=== PATIENT | female | born 1990 | race Caucasian/White ===

== ENCOUNTER 2022-12-15 07:21 | Emergency (ER) | payer BC, SELFPAY ==
[2022-12-15] VITALS (10 sets, daily range): BP systolic 102–123; BP diastolic 55–80; PULSE 67–107; RESP 15–18; TEMP 36.6–37; O2SAT 96–100; BMI 40.5
--- NOTE | 2022-12-15 07:32 | US_ITS ---
FINAL REPORT CLINICAL HISTORY: ovarian torsion, RLQ pain FINDINGS: Transvaginal sonographic images of the pelvis were obtained. The uterus measures 10.8 x 5.8 x 4.9 cm and is enlarged. There is a fibroid measuring 4.2 cm.. The endometrium is thickened and heterogeneous measuring up to 16 mm. Clot in the endometrial canal cannot be excluded. The right ovary measures 4.7 cm in length and left ovary measures 3.0 cm in length. Normal blood flow seen to the ovaries. There are small bilateral ovarian cysts measuring 3 cm on the right and 2.1 cm on the left. There is no evidence of free fluid. IMPRESSION: Heterogeneous and thickened endometrium. Clot in the endometrial cavity not excluded. No evidence of torsion. Reviewed, Interpreted and Dictated by Ricco Long III, MD Transcribed by Tresa Escobedo Authenticated and [facility]
[2022-12-15 07:35] LABS: Microscopic, Urine URINE MICROSCOPIC (MICROSCOPIC)
[2022-12-15 07:37] LABS: Appearance,Urine CLEAR (Clear); Blood, Urine 3+ (Negative); Color,Urine YELLOW (Yellow); Glucose,Urine (UA) Negative (Negative); Ketones,Urine Negative (Negative); Leukocyte Esterase,Urine TRACE (Negative); Nitrate,Urine Negative (Negative); Protein,Urine TRACE (Negative); Specific Gravity, Urine >= 1.030 (1.005-1.030)
--- NOTE | 2022-12-15 07:37 | HMH.EDGENADL ---
Discharge Plan Disposition Patient Disposition: Still a Patient Referrals Follow up/Referrals: Provider,Referral, [Primary Care Provider] - See instructions Clinical Impressions Clinical Impression: Acute right lower quadrant pain Discharge ED Provider: Preet Coombs General Adult HPI General Stated complaint: RT abd pain Time Seen by Provider: 12/15/22 07:38 History of Present Illness HPI narrative: 32-year-old female presents with right lower quadrant abdominal pain. She says that it began suddenly in the right lower quadrant yesterday and has been sharp nonradiating. No dysuria or hematuria. No fever or chills. She is on her period currently. No right upper quadrant pain chest pain or shortness of breath. Related Data Allergies Allergy/AdvReac Type Severity Reaction Status Date / Time amoxicillin [From Amoxil] Allergy Unknown Verified 01/28/19 11:33 cefaclor [From Ceclor] Allergy Unknown Verified 01/28/19 11:33 erythromycin base Allergy Unknown Verified 01/28/19 11:33 [From Pediazole] sulfisoxazole Allergy Unknown Verified 01/28/19 11:33 [From Pediazole] [facility] Disclaimer: The information contained in this section may have been updated after the patient was seen, as this information can be updated by other users. Social History Smoking Status: Never smoker alcohol intake: never substance use type: denies use current occupational status: other Travel in the last 8 weeks: None ROS Obtained: Yes All systems reviewed & no additional complaints except as documented Constitutional Constitutional: Denies fatigue Eyes Eyes: Denies dry eyes ENT Ears, Nose, Mouth, and Throat: Denies dizziness, Denies dry mouth and Denies lip swelling Cardiovascular Cardiovascular: Denies diaphoresis and Denies dyspnea Respiratory Respiratory: Denies dyspnea Gastrointestinal Gastrointestingal: Denies hematemesis, loose stools or melena Genitourinary Female Genitourinary: Denies dysuria and Denies hematuria Musculoskeletal Musculoskeletal: Denies muscle cramps Integumentary/Breasts Skin/Breast: Denies redness and Denies rash Neurologic Neurologic: Denies dizziness Endocrine Endocrine: Denies fatigue Hematologic/Lymphatic Henatologic/Lymphatic: Denies easy bleeding Allergic/Immunologic Allergic/Immunologic: Denies lip swelling Physical Exam General General appearance: alert and in no apparent distress Eye Eye exam: Present PERRL and EOMI ENT ENT exam: Present normal exam and normal oropharynx Neck Neck exam: Present normal inspection Chest Chest inspection: Present symmetric chest wall rise Respiratory Respiratory exam: Present normal lung sounds bilaterally; Absent respiratory distress Cardiovascular Cardiovascular exam: Present regular rate and normal rhythm Abdominal Exam Abdominal exam: Present soft and tenderness (Right lower quadrant tenderness); Absent distention, guarding, rebound, Ortega's sign or tenderness at McBurney's Point Back Exam Back exam: Present normal inspection Neurological Exam Neurological exam: Present alert and oriented X3 Psychiatric Psychiatric exam: Present normal affect and normal mood Skin Skin exam: Present warm, dry and intact Lymphatic Lymphatic Findings: no adenopathy Medical Decision Making Medical Records Medical records reviewed: Yes I reviewed the patient's medical records. Eber Inquiry Pt receiving controlled substance: No Eber was queried for this patient: No Orders (Tests/Meds): ED MEDICATIONS Generic Name Dose Route Start Last Admin Trade Name Freq PRN Reason Stop Dose Admin Sodium Chloride 1,000 mls @ 999 mls/hr 12/15/22 07:45 Sod Chlor 0.9% 1000ml Bag IV 12/15/22 08:45 .[id number] [facility] ORDERS Category Date Time Status Complete Blood Count Auto Diff Stat Lab 12/15/22 07:32 Ordered Comprehensive Metabolic Panel Stat Lab 12/15/22 07:32 Ordered HCG Qualitative, Serum Stat Lab 12/15/22 07:32 Ordered UA [Urina
[2022-12-15 07:39] LABS: Bilirubin,Urine 1+ (Negative)
[2022-12-15 07:40] LABS: Bacteria,Urine Trace /lpf; Squamous Epithelial Cell,Urine Occasional #/hpf (0-5)
--- NOTE | 2022-12-15 07:40 | PC.NURSE ---
pt to rad via wheelchair
--- NOTE | 2022-12-15 07:50 | PC.NURSE ---
PT GOING TO HAVE VAGINAL ULTRA SOUND VIA WHEELCHAIR
[2022-12-15 07:53] LABS: Basophils % 0.4 % (0.1-2.0); Eosinophils # 0.3 K/mm3 (0.0-0.4); Eosinophils % 3.1 % (0.1-12.0); Hemoglobin 10.9 g/dL (12.2-16.2); Lymphocytes # 0.6 K/mm3 (0.7-4.5); Lymphocytes % 6.5 % (10-50); Mean Corpuscular HGB Conc 31.1 g/dL (31.8-35.4); Mean Corpuscular Hemoglobin 22.6 pg (27.0-31.2); Mean Corpuscular Volume 72.8 fl (81-99); Mean Platelet Volume 9.3 fl (7.4-10.4); Monocytes # 0.6 K/mm3 (0.1-1.0); Monocytes % 6.4 % (1.7-9.3); Neutrophils # 7.4 K/mm3 (1.8-7.8); Neutrophils % 83.6 % (37.0-80.0); Platelet Count 292 K/mm3 (142-424); Red Cell Distribution Width 17.3 % (11.5-17.5); White Blood Count 8.8 K/mm3 (4.8-10.8)
--- NOTE | 2022-12-15 07:53 | PC.NURSE ---
Pt in Ultrasound.
[2022-12-15 07:56] LABS: Chloride 108 mmol/L (98-107)
[2022-12-15 07:57] LABS: Sodium 138 mmol/L (136-145)
[2022-12-15 07:59] LABS: Alanine Aminotransferase 16 U/L (12-78); Alkaline Phosphatase 61 U/L (38-126); Aspartate Amino Transferase 24 U/L (14-36); Bilirubin,Total 1.1 mg/dl (0.2-1.3); Blood Urea Nitrogen 7 mg/dl (7-17); Creatinine Clearance Estimated 39 mL/min (50-200); Estimated Glomerular Filt Rate 141 ml/min (>60); GFR (African American) 171 ML/MIN (>60)
[2022-12-15 08:00] LABS: Albumin Level 4.4 g/dl (3.5-5.0); Albumin/Globulin Ratio 1.2 (1.1-1.8); Calcium 8.4 mg/dl (8.4-10.2); Carbon Dioxide 23 mmol/L (22.0-30.0); Globulin 3.6 g/dL (1.3-3.2); Glucose 129 mg/dl (74-100)
[2022-12-15 08:01] LABS: HCG Qualitative, Serum Negative (Negative)
--- NOTE | 2022-12-15 08:36 | PC.NURSE ---
PT ARRIVED BACK TO ROOM FROM ULTRASOUND
--- NOTE | 2022-12-15 08:39 | CT_ITS ---
FINAL REPORT TECHNIQUE: Axial CT images of the abdomen and pelvis were obtained after the administration of oral and iv contrast. Coronal reformatted images were also obtained and reviewed.This study was performed with techniques to keep radiation doses as low as reasonably achievable (ALARA). Individualized dose reduction techniques using automated exposure control or adjustment of mA and/or kV according to the patient's size were employed. CLINICAL HISTORY: RLQ abd pain COMPARISON: none FINDINGS: CT OF THE ABDOMEN AND PELVIS WITH CONTRAST Abdomen: The lung bases are clear. The heart is normal in size. The liver has an unremarkable appearance, without evidence of mass or biliary ductal dilatation. The spleen is unremarkable. No adrenal mass is present. The pancreas has an unremarkable appearance. The kidneys are normal, without evidence of mass or hydronephrosis. The aorta is normal in caliber. There is no free fluid or adenopathy. Pelvis: The appendix normal. The urinary bladder is unremarkable. There is a right ovarian presumed cyst measuring 25 mm. There is a low-attenuation mass at the fundus of the uterus measuring 54 mm which may represent a degenerated fibroid. There is presumed fluid in the endometrial cavity. Cervix is distended and fluid-filled. This may represent fluid in the endocervical canal or a cystic mass. There is a 14 mm left ovarian cyst. There is a small amount of free fluid, physiologic or reactive. There is no evidence of bowel obstruction. IMPRESSION: Bilateral ovarian cysts. Low-attenuation in the cervix may represent endocervical fluid versus cystic mass. Cystic mass in the fundus may represent degenerated fibroid. Reviewed, Interpreted and Dictated by Ricco Long III, MD Transcribed by Nery Chavis Authenticated and [facility]
--- NOTE | 2022-12-15 08:40 | PC.NURSE ---
Return from radiology. Warm blanket provided. MD at bedside discussing plan of care. 1L bolus initiated. 05/01 right flank pain.
--- NOTE | 2022-12-15 08:52 | PC.NURSE ---
CHECKED ON PT NO COMPLAINTS,DAUGHTER AT BEDSIDE
--- NOTE | 2022-12-15 09:10 | PC.NURSE ---
notified of 8/10 right flank pain.
--- NOTE | 2022-12-15 09:22 | PC.NURSE ---
PT GOING TO CT SCAN VIA WHEELCHAIR
--- NOTE | 2022-12-15 09:39 | PC.NURSE ---
Pt from CT. Reassessment of pain, 01/30. Pt updated on plan of care; awaiting CT results. No further complaints.
--- NOTE | 2022-12-15 09:51 | PC.NURSE ---
ROUNDED ON PT STATES NO COMPLAINT AT THIS TIME
--- NOTE | 2022-12-15 11:01 | PC.NURSE ---
checked on pt no complaints, family at bedside
== END 2022-12-15 11:51 | disposition still patient (30) ==
PROVIDERS: Emergency Provider Emergency Medicine
DX: R10.31 Right lower quadrant pain (principal); N83.201 Unspecified ovarian cyst, right side; N83.202 Unspecified ovarian cyst, left side
CPT/HCPCS: 74177; 76830; 80053; 81001; 84703; 85025; 96361; 96374; 96375; 99285; J2405; Q9967